=== PATIENT | female | born 1975 | race Two or more races ===

== ENCOUNTER 2025-04-02 10:59 | Emergency (ER) | payer MEDICAID ==
[~2025-04-02] VITALS: Ht 154.9 cm; Wt 53.2 kg
--- NOTE | 2025-04-02 11:27 | ED.PDOC ---
Musculoskeletal HPI Comments 49-year-old female presents to the ER with left lower extremity pain. Patient reports on sitting on the edge and slipping off injuring her left ankle yesterday. Patient does have ecchymosis, pain, swelling and discoloration to the left ankle. Patient is unable to bear weight to the extremity during the pain. Denies chills, fever, N/V/D, SOB, CP. No other associated symptoms, modifiers, recent injuries or sick contacts present at this time. Chief Complaint: Lower Extremity Time Seen by MD: 11:25 Reviewed Notes: Nurses Notes, Medications, Allergies Allergies: Coded Allergies: Clonidine (Verified Allergy, Unknown, 04/02/25) Lorazepam (Verified Allergy, Unknown, 04/02/25) NSAIDs (Verified Allergy, Unknown, 04/02/25) Naproxen (Verified Allergy, Unknown, 04/02/25) Information Source: Patient Mode of Arrival: Ambulatory Location: Left Extremity Location: Ankle Timing: Hours Prehospital treatment: None Severity: Moderate Able to Move Extremity: Yes Bear Weight: Limited Pain: Moderate Hand Dominance: Right Mechanism: Spontaneous Circumstances: Fall, Accident Onset of Symptoms: After Trauma Symptoms: Swelling, Pain DVT Risk Factors: NONE Associated signs and symptoms: Swelling, Ankle pain Past Medical History PAST MEDICAL HISTORY: Denies Surgical History: Denies all surgeries IRON MINER BLASTING History: No Pertinent IRON MINER BLASTING History Family History Family History: Reviewed,noncontributory to illness, Unknown Social History Smoker: Non-Smoker Alcohol: Denies ETOH Use Drugs: Denies Drug Use Lives In: Home Constitutional: denies: chills, diaphoresis, fatigue, fever, malaise, sweats, weakness, others EENTM: denies: blurred vision, double vision, ear bleeding, ear discharge, ear drainage, ear pain, ear ringing, eye pain, eye redness, hearing loss, mouth pain, mouth swelling, nasal discharge, nose bleeding, nose congestion, nose pain, photophobia, tearing, throat pain, throat swelling, voice changes, others Respiratory: denies: cough, hemoptysis, orthopnea, SOB at rest, shortness of breath, SOB with excertion, stridor, wheezing, others Cardiovascular: denies: chest pain, dizzy spells, diaphoresis, Dyspnea on exertion, edema, irregular heart beat, left arm pain, lightheadedness, palpitations, PND, syncope, others Gastrointestinal: denies: abdomen distended, abdominal pain, blood streaked bowels, constipated, diarrhea, dysphagia, difficulty swallowing, hematemesis, melena, nausea, poor appetite, poor fluid intake, rectal bleeding, rectal pain, vomiting, others Genitourinary: denies: abnormal vagina bleeding, burning, dyspareunia, dysuria, flank pain, frequency, hematuria, incontinence, pain, , vagina discharge, urgency, others Neurological: denies: dizziness, fainting, headache, left sided numbness, left sided weakness, numbness, paresthesia, pre-existing deficit, right sided numbness, right sided weakness, seizure, speech problems, tingling, tremors, weakness, others Musculoskeletal: reports: others (Ankle pain); denies: back pain, gout, joint pain, joint swelling, muscle pain, muscle stiffness, neck pain Integumetry: denies: bruises, change in color, change in hair/nails, dryness, laceration, lesions, lumps, rash, wounds, others Allergic/Immunocompromised: denies: Difficulty Healing, Frequent Infections, Hives, Itching, others Hematologic/Lymphatic: denies: anemia, blood clots, easy bleeding, easy bruising, swollen glands, others Endocrine: denies: excessive hunger, excessive sweating, excessive thirst, excessive urination, flushing, intolerance to cold, intolerance to heat, unexplained weight gain, unexplained weight loss, others Psychiatric: denies: anxiety, bipolar disorder, depression, hopeless, panic disorder, schizophrenia, sleepless, suicidal, others All Other Systems: Reviewed and Negative Physical Exam General Appearance: Moderate Distress, Normal HEENT: Normal ENT Inspection, PERRL/EOMI, Pharynx Normal, TMs Normal Neck: Full Range of Motion, Non-Tender, Normal, Normal Inspection Respiratory: Chest Non-Tender, Lungs Clear, No Accessory Muscle Use, No Respiratory Distress, Normal Breath Sounds Cardiovascular: No Edema, No JVD, No Murmur, No Gallop, Normal Peripheral Pulses, Regular Rate/Rhythm Breast Exam: Deferred Gastrointestinal: No Organomegaly, Non Tender, No Pulsatile Mass, Normal Bowel Sounds, Soft Genitalia: Deferred Pelvic: Deferred Rectal: Deferred Extremities: No calf tenderness, Normal capillary refill, Normal inspection, Normal range of motion, Non-tender, No pedal edema Musculoskeletal : Location: Left Extremity Location: Ankle Apperance: Normal, Swelling, Deformity, Limited ROM, Tenderness: Moderate, Tenderness: Severe Neurologic: Alert, candle molder II-XII nml as Tested, No Motor Deficits, Normal Affect, Normal Mood, No Sensory Deficits Cerebellar Function: Normal Reflexes: Normal Skin: Dry, Normal Color, Warm Peripheral Pulses: 1+ carotid (R), 1+ carotid (L) Lymphatic: No Adenopathy Was a procedure done? Was a procedure done?: No Differential Diagnosis EXT Differential Diagnosis: Fracture, Sprain, Strain X-Ray, Labs, Meds, VS Vital Signs Date Time Temp Pulse Resp B/P (MAP) Pulse Ox O2 Delivery O2 Flow Rate FiO2 04/02/25 12:07 79 18 119/91 (100) 98 04/02/25 12:07 79 18 97 Room Air 04/02/25 11:02 98.1 85 18 145/102 99 98.1 X-Ray, Labs, Meds, VS Comment Can not break patient course in the [employer] eventful patient came in because she injured her left ankle The ankle is fracture she has fracture of the medial malleolar and also a large heel spur Patient will have a posterior plaster splint and will follow up with an orthopedist Time of 1ST Reevaluation: 11:55 Reevaluation 1ST: Unchanged Time of 2ND Reevaluation: 12:16 Reevaluation 2ND: Improved Consultation: PCP, Other (Pubic surgeon) Patient Education/Counseling: Diagnosis, Treatment, Prognosis, Need For Follow Up Family Education/Counseling: Diagnosis, Treatment, Prognosis, Need For Follow Up, No Family Present Departure 1 Departure Time of Disposition: 12:17 Impression: Primary Impression: Medial malleolar fracture Qualified Codes: S82.55XA - Nondisplaced fracture of medial malleolus of left tibia, initial encounter for closed fracture Disposition: 01 HOME / SELF CARE / HOMELESS Condition: Fair Additional Instructions: Elevated and follow up with the orthopedist e-Prescriptions Tramadol HCl (Tramadol HCl) 50 Mg Tab 50 MG PO TID for 5 Days, #15 TAB Prov: CHRISS TRINIDAD MD 04/02/25 Discharged With: Self Critical Care Note Critical Care Time?: No Stability Stability form required: No Heart Score Heart Score: Heart Score Response (Comments) Value History N/A 0 EKG N/A 0 Age N/A 0 Risk Factors No known risk factors 0 Troponin N/A 0 Total 0 I personally scribed for CHRISS TRINIDAD MD ([email or web address]) on 04/02/25 at 11:27. Electronically submitted by Bertin Krishnan ([email or web address]). CHRISS TRINIDAD MD Apr 02, 2025 11:27
--- NOTE | 2025-04-02 12:02 | DVH ---
CLINICAL INDICATION: Fall injury TECHNIQUE: 3v XY L ANKLE 3 VIEW Comparison: None FINDINGS/IMPRESSION: : Medial malleolar fracture. Ankle mortise intact soft tissue swelling large plantar calcaneal spur. 3 talar dome intact Soft tissues are unremarkable.
[2025-04-02] MEDS ORDERED: TRAM-626 PO (12:21)
[2025-04-02] MEDS: KETOROLAC TROMETH 60MG/2ML VIAL IM ONE ×2 (12:31)
[2025-04-02 13:25] VITALS: BP 133/88; PULSE 74; RESP 18; TEMP 98.2; O2SAT 100
== END 2025-04-02 13:28 | disposition home or self-care (01) ==
LOC: ER 11:03
DX: S82.52XA Displaced fracture of medial malleolus of left tibia, initial encounter for closed fracture (principal); Z88.6 Allergy status to analgesic agent; Z79.899 Other long term (current) drug therapy; X58.XXXA Exposure to other specified factors, initial encounter; Y93.89 Activity, other specified; Y92.89 Other specified places as the place of occurrence of the external cause; Y99.8 Other external cause status
CPT/HCPCS: 29515; 73610; 96372; 99283; J1885